=== PATIENT | female | born 1945 | race Native Hawaiian/Other Pacific Islander ===

== ENCOUNTER → 2017-07-06 | Day surgery (SDC) | payer MEDICARE ==
[2016-10-06 13:53] VITALS: BMI 23.0
--- NOTE | 2017-07-07 08:36 | PROCN ---
DATE OF PROCEDURE: 07/06/2017 A 71 years old female, [place]. PROCEDURE: Tilt-table test. DESCRIPTION OF PROCEDURE: The patient was put on the table and tilted at 30 degrees for 5 minutes and 60 degrees for 15 minutes. Blood pressure and heart rate response were monitored every 3 minutes. There was a 12 mmHg slow drop in blood pressure and 2 beats per minute rise in heart rate. The patient tolerated the procedure well. The patient remains asymptomatic throughout the test. IMPRESSION: Appropriate heart rate and blood pressure response during the tilt table test. The patient remains asymptomatic throughout the test. Kelly Lundberg MD
== END | disposition home or self-care (01) ==
LOC: C.CATHLAB 07:15
PROVIDERS: ATTEND Internal Medicine
DX: R07.9 Chest pain, unspecified (principal); M19.90 Unspecified osteoarthritis, unspecified site; M81.0 Age-related osteoporosis without current pathological fracture